=== PATIENT | female | born 1970 | race Caucasian/White ===

== ENCOUNTER → 2016-08-31 | Outpatient (CLI) | payer OTHER ==
[~2016-08-31] MED LIST: ALBU1AER9 INH; BUPRTAB PO; CHOL2000 PO; CYAN10005 PO; FLNIN/ NAE; IBUP-103 PO; NRN800 PO; PANT40TA2 PO; SNG10 PO; VNTHFA/IN INH; VORT1TAB PO
[2016-08-31 17:36] LABS: BASO % 0.4 %; BASO ABS # 0.03 K/uL (0-0.2); COMPLETE YES; EOS % 2.2 %; HEMATOCRIT 41.7 % (37-47); IG% 0.2 %; LYMPH % 29.2 %; LYMPH ABS # 2.43 K/uL (1.2-3.4); MEAN CELL VOLUME 90.5 fL (80-100); MEAN CORPUSCULAR HEMOGLOBIN 31.2 pg (25-34); MEAN CORPUSCULAR HGB CONC 34.5 g/dl (32-36); MEAN PLATELET VOLUME 11.3 fL (7.4-10.4); MONO % 5.9 %; NEUT % 62.1 %; PLATELET COUNT 234 K/uL (130-400); RED BLOOD COUNT 4.61 M/uL (4.2-5.4); WHITE BLOOD COUNT 8.32 K/uL (4.8-10.8)
[2016-08-31 18:30] LABS: LYME DISEASE AB IGM NEG (NEG)
[2016-08-31 18:35] LABS: LYME DISEASE AB IGG NEG (NEG)
== END | disposition home or self-care (01) ==
LOC: C.LABBFT 14:09
PROVIDERS: ATTEND Psychiatry & Neurology Psychiatry
DX: F32.9 Major depressive disorder, single episode, unspecified (principal); R26.89 Other abnormalities of gait and mobility; R51 Headache; R20.2 Paresthesia of skin

== ENCOUNTER → 2016-09-11 | Outpatient (CLI) | payer OTHER | END | disposition home or self-care (01) | LOC: C.RDSM 12:56 | PROVIDERS: ATTEND Family Medicine Sports Medicine | DX: M25.511 Pain in right shoulder (principal) ==

== ENCOUNTER → 2016-10-09 | Outpatient (CLI) | payer OTHER ==
--- NOTE | 2016-10-09 15:17 | DIAGNOSTIC IMAGING REPORT ---
MRI OF THE RIGHT SHOULDER CLINICAL HISTORY: Right shoulder pain of 6 months duration. COMPARISON STUDY: Radiographs of the right shoulder dated 09/11/2016. TECHNIQUE: MRI of the right shoulder was performed utilizing various T1 and T2 weighted sequences in the axial, sagittal, coronal planes. IV contrast was not administered for this examination. The examination is degraded by motion artifact. FINDINGS: Rotator cuff: There is tendinopathy of the supraspinatous tendon. A high-grade partial-thickness tear is seen on coronal images #8-10. Additional foci of undersurface tearing are seen at the leading edge. No full-thickness tear is seen and there is no musculotendinous retraction. The teres minor and subscapularis tendons are intact. There is no subacromial or subdeltoid bursal fluid. Productive degenerative change is seen at the acromioclavicular joint. Biceps tendon: The long head of the biceps tendon is normal in signal intensity and located within the bicipital groove. The anchor is maintained. Labrum: There is degenerative tearing/fraying of the superior labrum.. Shoulder joint: There is trace joint fluid. The articular cartilage over the glenoid is well maintained. Normal marrow signal intensity is preserved of the visualized osseous structures. Musculature and soft tissues: The musculature of the shoulder is normal in bulk and signal intensity. No atrophy is seen. IMPRESSION: 1. Motion degraded examination. 2. There is tendinopathy with a high-grade partial-thickness tear of the supraspinatous tendon located near the muscular tendinous junction. 3. Additional foci of mild undersurface tearing are seen at the leading edge of the supraspinous tendon. 3. The remainder of the rotator cuff appears intact. 4. There is degenerative tearing/fraying of the superior labrum. Electronically signed by: Herb Krishnan M.D. 10/09/2016 3:15 PM Dictated Date/Time: 10/09/2016 3:01 PM
== END | disposition home or self-care (01) ==
LOC: C.MRI 13:30
PROVIDERS: ATTEND Family Medicine Sports Medicine
DX: M25.511 Pain in right shoulder (principal); M75.40 Impingement syndrome of unspecified shoulder

== ENCOUNTER → 2016-11-24 | Outpatient (CLI) | payer OTHER ==
[~2016-11-24] MED LIST changes: -BUPRTAB PO; -CHOL2000 PO; -CYAN10005 PO; -IBUP-103 PO; -PANT40TA2 PO; +PRT/40 PO; -VNTHFA/IN INH; -VORT1TAB PO
[2016-11-24 16:47] LABS: BASO % 0.3 %; BASO ABS # 0.03 K/uL (0-0.2); COMPLETE YES; EOS % 2.5 %; HEMATOCRIT 40.4 % (37-47); IG% 0.3 %; LYMPH % 26.6 %; LYMPH ABS # 2.86 K/uL (1.2-3.4); MEAN CELL VOLUME 91.6 fL (80-100); MEAN CORPUSCULAR HEMOGLOBIN 30.6 pg (25-34); MEAN CORPUSCULAR HGB CONC 33.4 g/dl (32-36); MEAN PLATELET VOLUME 10.8 fL (7.4-10.4); NEUT % 65.3 %; PLATELET COUNT 205 K/uL (130-400); RED BLOOD COUNT 4.41 M/uL (4.2-5.4); WHITE BLOOD COUNT 10.77 K/uL (4.8-10.8)
[2016-11-24 17:13] LABS: ALT/SGPT 23 U/L (12-78); BLOOD UREA NITROGEN 6 mg/dl (7-18); BUN/CREATININE RATIO 9.1 (10-20); CALCIUM 8.9 mg/dl (8.5-10.1); CARBON DIOXIDE 26 mmol/L (21-32); CHLORIDE 104 mmol/L (98-107); CREATININE 0.66 mg/dl (0.60-1.20); GLUCOSE 81 mg/dl (70-99); POTASSIUM 3.7 mmol/L (3.5-5.1); SODIUM 138 mmol/L (136-145)
[2016-11-24 17:24] LABS: ALB/GLOB RATIO 0.8 (0.9-2); ALKALINE PHOSPHATASE 82 U/L (45-117); AST/SGOT 16 U/L (15-37)
[2016-11-24 18:08] LABS: ESTIMATED AVERAGE GLUCOSE 100 mg/dl; HA1C FLAG Normal (Normal)
== END | disposition home or self-care (01) ==
LOC: C.LAB1850 15:43
PROVIDERS: ATTEND Family Medicine
DX: R53.83 Other fatigue (principal); E55.9 Vitamin D deficiency, unspecified; R73.02 Impaired glucose tolerance (oral); E53.8 Deficiency of other specified B group vitamins; R61 Generalized hyperhidrosis

== ENCOUNTER → 2016-12-07 | Outpatient (CLI) | payer OTHER ==
--- NOTE | 2016-12-07 16:18 | DIAGNOSTIC IMAGING REPORT ---
RIGHT KNEE 3 VIEWS HISTORY: 46 years-old Female M06.4 Inflammatory [id number] NSAID long-term use. COMPARISON: None available TECHNIQUE: Frontal, lateral and sunrise views of the right knee FINDINGS: There is no acute fracture, dislocation or significant degenerative changes. There is a small joint effusion. 3 mm peripherally corticated bone fragment is seen medial to the medial femoral condyle. No intra-articular loose body is seen. IMPRESSION: 1. Small joint effusion without acute bony modality. 2. 3 mm corticated fragment medial to the medial femoral condyle may reflect remote avulsion fracture or accessory ossicle. The above report was generated using voice recognition software. It may contain grammatical, syntax or spelling errors. Electronically signed by: Juventino Lock M.D. 12/07/2016 4:17 PM Dictated Date/Time: 12/07/2016 4:15 PM
--- NOTE | 2016-12-07 16:20 | DIAGNOSTIC IMAGING REPORT ---
LEFT HAND MIN 3 VIEWS ROUTINE HISTORY: 46 years-old Female M06.4 Inflammatory qripyngzyzfwnQ28.1 NSAID long-term useBoth COMPARISON: None available TECHNIQUE: 3 views of the left hand FINDINGS: Mild first digit carpometacarpal and triscaphe degenerative changes are present. There is no acute fracture, dislocation or evidence of erosive arthropathy. Articular surfaces appear maintained throughout the wrist and hand. Soft tissues are within normal limits. IMPRESSION: 1. No acute fracture or dislocation identified. 2. No evidence of erosive arthropathy. The above report was generated using voice recognition software. It may contain grammatical, syntax or spelling errors. Electronically signed by: Juventino Lock M.D. 12/07/2016 4:19 PM Dictated Date/Time: 12/07/2016 4:17 PM
--- NOTE | 2016-12-07 16:24 | DIAGNOSTIC IMAGING REPORT ---
LEFT KNEE 3 VIEWS HISTORY: 46 years-old Female M06.4 Inflammatory dfbtzzjchxboaK64.1 NSAID long-term useBoth COMPARISON: None available TECHNIQUE: Frontal and lateral views of the left knee FINDINGS: No acute fracture or dislocation. Minimal tricompartmental degenerative changes are seen, most pronounced in the medial compartment. There is a suspected small joint effusion. No intra-articular loose body. No erosive changes are seen. No evidence of AVN. IMPRESSION: 1. 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 2. No acute osseous abnormality. The above report was generated using voice recognition software. It may contain grammatical, syntax or spelling errors. Electronically signed by: Juventino Lock M.D. 12/07/2016 4:23 PM Dictated Date/Time: 12/07/2016 4:22 PM
--- NOTE | 2016-12-07 16:26 | DIAGNOSTIC IMAGING REPORT ---
RIGHT ANKLE MIN 3 VIEWS ROUTINE HISTORY: 46 years-old Female M06.4 Inflammatory pynsvcpsvzvseZ51.1 NSAID long-term useBoth Right COMPARISON: None available TECHNIQUE: 3 views of the right ankle. FINDINGS: Ankle mortise is well maintained and anatomically positioned. The talar dome is smooth. No acute fracture, dislocation or significant degenerative changes. There is moderate spurring of the Achilles insertion site about the calcaneus. Soft tissues are within normal limits without radiopaque foreign body. IMPRESSION: 1. No acute fracture or dislocation. 2. Moderate spurring of the Achilles insertion site about the calcaneus. The above report was generated using voice recognition software. It may contain grammatical, syntax or spelling errors. Electronically signed by: Juventino Lock M.D. 12/07/2016 4:25 PM Dictated Date/Time: 12/07/2016 4:24 PM
[2016-12-07 16:34] LABS: BASO % 0.3 %; BASO ABS # 0.03 K/uL (0-0.2); COMPLETE YES; HEMATOCRIT 41.8 % (37-47); IG% 0.2 %; LYMPH % 29.1 %; MEAN CELL VOLUME 89.3 fL (80-100); MEAN CORPUSCULAR HEMOGLOBIN 30.6 pg (25-34); MEAN CORPUSCULAR HGB CONC 34.2 g/dl (32-36); MEAN PLATELET VOLUME 10.6 fL (7.4-10.4); MONO % 4.6 %; NEUT % 60.8 %; PLATELET COUNT 252 K/uL (130-400); RED BLOOD COUNT 4.68 M/uL (4.2-5.4); WHITE BLOOD COUNT 8.93 K/uL (4.8-10.8)
--- NOTE | 2016-12-07 16:58 | DIAGNOSTIC IMAGING REPORT ---
RIGHT HAND 3 VIEWS CLINICAL HISTORY: Inflammatory polyarthritis. FINDINGS: 3 views of the right hand are obtained. No prior studies are available for comparison at the time of dictation. The skeletal structures are well mineralized. No fracture is seen. The joint spaces of the hand are well-maintained. No erosive change is seen. The overlying soft tissues are within normal limits. A bracelet is noted. IMPRESSION: Unremarkable radiographic assessment of the right hand. Electronically signed by: Herb Krishnan M.D. 12/07/2016 4:57 PM Dictated Date/Time: 12/07/2016 4:56 PM
[2016-12-07 17:06] LABS: RHEUMATOID FACTOR < 10.0 U/mL (0-15); TOTAL IRON BINDING CAPACITY 279 mcg/dl (250-450)
[2016-12-12 05:18] LABS: ANTI-CENTROMERE AB <1.0 NEG AI (<1.0 NEG); ANTI-SS-A <1.0 NEG AI (<1.0 NEG); ANTI-SS-B <1.0 NEG AI (<1.0 NEG); DNA ds CRITHIDIA NEGATIVE (NEGATIVE); PARVOVIRUS IgG INDEX 6.5 (<0.9); PARVOVIRUS IgM INDEX 0.2 (<0.9); Sm Antibody <1.0 NEG AI (<1.0 NEG)
== END | disposition home or self-care (01) ==
LOC: C.RAD1850 15:20
PROVIDERS: ATTEND Internal Medicine Rheumatology
DX: Z00.00 Encounter for general adult medical examination without abnormal findings (principal); M06.4 Inflammatory polyarthropathy; Z79.1 Long term (current) use of non-steroidal anti-inflammatories (NSAID); M77.31 Calcaneal spur, right foot

== ENCOUNTER → 2017-04-13 | Outpatient (CLI) | payer OTHER ==
[~2017-04-13] MED LIST changes: +BUPRTAB PO; +CHOL2000 PO; +CYAN10005 PO; +IBUP-103 PO; +PANT40TA2 PO; -PRT/40 PO; +VNTHFA/IN INH; +VORT1TAB PO
--- NOTE | 2017-04-14 13:45 | MAMMOGRAPHY REPORT ---
BILATERAL DIGITAL SCREENING MAMMOGRAM TOMOSYNTHESIS WITH CAD: 04/13/2017 CLINICAL HISTORY: Routine screening. Patient has no complaints. TECHNIQUE: Breast tomosynthesis in addition to standard 2D mammography was performed. Current study was also evaluated with a Computer Aided Detection (CAD) system. COMPARISON: Comparison is made to exams dated: 03/30/2016 mammogram, 03/25/2015 mammogram, 03/22/2014 mammogram, 08/11/2013 mammogram, and 08/07/2013 mammogram - [facility]. BREAST COMPOSITION: There are scattered areas of fibroglandular density in both breasts. Mild invol utional changes comparing to prior mammograms. FINDINGS: There is a benign rim calcification in the right breast. No suspicious mass, architectural distortion or cluster of microcalcifications is seen. IMPRESSION: ACR BI-RADS CATEGORY 1: NEGATIVE There is no mammographic evidence of malignancy. A 1 year screening mammogram is recommended. The pa tient will receive written notification of the results. Approximately 10% of breast cancers are not detected with mammography. A negative mammographic report should not delay biopsy if a clinically suggestive mass is present. Ashlie Hill M.D. ay/:04/13/2017 17:48:24 Geology Instructor: Tracey LORA(Jaelyn)(Goran)([place]), [facility] letter sent: Normal 1/2 BI-RADS Code: ACR BI-RADS Category 1: Negative
== END | disposition home or self-care (01) ==
LOC: C.MAMM 13:45
PROVIDERS: ATTEND Obstetrics & Gynecology
DX: Z12.31 Encounter for screening mammogram for malignant neoplasm of breast (principal)

== ENCOUNTER → 2017-04-22 | Outpatient (CLI) | payer OTHER ==
[~2017-04-22] MED LIST changes: -ALBU1AER9 INH
== END | disposition home or self-care (01) ==
LOC: C.RDSM 10:41
PROVIDERS: ATTEND Family Medicine Sports Medicine
DX: M25.512 Pain in left shoulder (principal)

== ENCOUNTER → 2017-04-30 | Outpatient (CLI) | payer OTHER ==
[~2017-04-30] MED LIST changes: +GADAVIST IV PRN
--- NOTE | 2017-04-30 13:57 | DIAGNOSTIC IMAGING REPORT ---
FLUOROSCOPICALLY GUIDED LEFT SHOULDER ARTHROGRAM PRIOR TO MRI CLINICAL HISTORY: Left shoulder pain. Fluoroscopy time: 13 seconds. PROCEDURE: 1 fluoroscopic image was obtained. The procedure, risks and benefits were discussed with the patient and informed written consent was obtained. The procedure was performed by Dr. Dietz following a timeout. Skin overlying the left glenohumeral joint was prepped and draped in sterile fashion and local anesthesia was achieved with 1% lidocaine. Under intermittent fluoroscopic guidance, a 2 1/2 inch, 22-gauge needle was directed into the left glenohumeral joint. Positioning within the joint space was confirmed with injection of a small amount of contrast. At this time, 12 cc of a mixture of 0.05 cc of gadolinium, 10 cc of normal saline and 10 cc of Optiray 300 was injected into the joint. The needle was removed. The patient tolerated the procedure well and no immediate complications were evident. The patient was transported to MRI. IMPRESSION: Fluoroscopically guided left shoulder arthrogram prior to MRI. Electronically signed by: Kd Dietz M.D. 04/30/2017 1:56 PM Dictated Date/Time: 04/30/2017 1:51 PM
--- NOTE | 2017-04-30 18:34 | DIAGNOSTIC IMAGING REPORT ---
L UPPER EXTREMITY JOINT W/ CLINICAL HISTORY: 46 years-old Female with L SHOULDER PAIN. Acute on chronic left shoulder pain. History of prior labral and biceps surgery. COMPARISON: Left shoulder radiographs 04/22/2017, left shoulder MRI 05/23/2014. TECHNIQUE: Multiplanar, multi sequence MRI of the left shoulder was performed following the intra-articular administration of solution containing gadolinium. FINDINGS: ROTATOR CUFF: High-grade partial-thickness articular sided tear of the mid insertional fibers of the supraspinatus tendon measures 4 mm in AP dimension and 7 mm in transverse dimension with interstitial extension of the tear seen on image 9 series 5. No tendon retraction or definite full-thickness tear identified. Mild tendinosis of the interspinous tendon without definite tear. Subscapularis and teres minor tendons appear intact. Rotator cuff muscle morphology and signal are within normal limits. BICEPS TENDON: Postoperative changes with screw tract noted near the intertubercular groove from prior long head biceps tendon/subscapularis tendon repair. Intermediate intrasubstance T2 signal within the long head biceps tendon as seen on image 14 series 4 is likely postsurgical. Long head biceps tendon is seated within the intertubercular groove. LABRUM: There is mild fraying of the anteroinferior quadrant labrum as noted on image 12 series 4 without definite acute labral tear identified. There is no evidence for a paralabral cyst or displaced labral fragment. GLENOHUMERAL JOINT: The articular cartilage overlying the glenoid fossa is normal. There is no loose body or debris present within the glenohumeral joint. ACROMIOCLAVICULAR JOINT: Mild degenerative changes of the acromioclavicular joint with marginal spurring and capsular hypertrophy. The acromium has a gently curved undersurface.. No evidence of os acromiale. No definite subacromial/subdeltoid bursitis. OUTLET SPACES: The suprascapular notch and quadrilateral space are without obstructing or space occupying lesions. BONE MARROW: No focal abnormality, fracture or marrow occupying lesion. SOFT TISSUES: The periarticular soft tissues are unremarkable. Micrometallic artifact noted within the anterolateral soft tissues about the shoulder. Likely physiologic nonenlarged axillary lymph nodes are present. IMPRESSION: 1. High-grade partial-thickness articular sided tear of the mid insertional fibers supraspinatus tendon, 4 x 7 mm with interstitial extension. No tendon retraction or full-thickness tear identified. 2. Mild tendinosis of the infraspinatus tendon without definite tear. 3. Prior long head biceps tendon repair. Mild intermediate intrasubstance T2 signal as above is likely postsurgical with tendon re-tear considered less likely. Correlate with clinical exam and patient symptoms. 4. Mild fraying of the anteroinferior labrum without definite acute labral tear identified. 5. Mild degenerative changes of the acromioclavicular joint. The above report was generated using voice recognition software. It may contain grammatical, syntax or spelling errors. Electronically signed by: Juventino Lock M.D. 04/30/2017 6:32 PM Dictated Date/Time: 04/30/2017 2:22 PM
== END | disposition home or self-care (01) ==
LOC: C.MRIBC 12:43
PROVIDERS: ATTEND Family Medicine Sports Medicine
DX: M25.512 Pain in left shoulder (principal)

== ENCOUNTER 2017-05-03 10:05 | Observation (INO) | payer OTHER ==
[2017-04-15 10:35] VITALS: BMI 36.0
--- NOTE | 2017-04-28 11:30 | PAT Medication Instructions ---
Service Date Apr 28, 2017. Current Home Medication List Albuterol Hfa (Ventolin Hfa), 1-2 PUFFS INH Q6H PRN for ALLERGIC REACTION Bupropion Hcl (Wellbutrin Xl), 150 MG PO QAM Cholecalciferol (Vitamin D3), 2,000 UNITS PO QAM Cyanocobalamin (Vitamin B-12), 1,000 MCG PO QAM Fluticasone Propionate (Fluticasone Propionate), 2 SPRAYS MYRIAM DAILY PRN for Allergy Symptoms Gabapentin (Gabapentin), 800 MG PO TID Ibuprofen Tab (Advil), 400 MG PO Q5H PRN for Pain Montelukast Sod (Montelukast Sodium), 10 MG PO QAM Pantoprazole (Pantoprazole Sodium), 40 MG PO QAM Vortioxetine HBr (Trintellix), 5 MG PO HS Medication Instructions For Your Scheduled Surgery - Check with surgeon for instructions: Ibuprofen Tab (Advil), 400 MG PO Q5H PRN for Pain - Hold the following medications the morning of surgery: Cholecalciferol (Vitamin D3), 2,000 UNITS PO QAM Cyanocobalamin (Vitamin B-12), 1,000 MCG PO QAM Montelukast Sod (Montelukast Sodium), 10 MG PO QAM - Take the following medications the morning of surgery with a sip of water: Pantoprazole (Pantoprazole Sodium), 40 MG PO QAM Fluticasone Propionate (Fluticasone Propionate), 2 SPRAYS MYRIAM DAILY PRN for Allergy Symptoms (if needed) Gabapentin (Gabapentin), 800 MG PO TID Albuterol Hfa (Ventolin Hfa), 1-2 PUFFS INH Q6H PRN for ALLERGIC REACTION (if needed) Bupropion Hcl (Wellbutrin Xl), 150 MG PO QAM - Take the following medications as scheduled the night before surgery: Vortioxetine HBr (Trintellix), 5 MG PO HS Fluticasone Propionate (Fluticasone Propionate), 2 SPRAYS MYRIAM DAILY PRN for Allergy Symptoms (if needed) Gabapentin (Gabapentin), 800 MG PO TID Albuterol Hfa (Ventolin Hfa), 1-2 PUFFS INH Q6H PRN for ALLERGIC REACTION (if needed) Bupropion Hcl (Wellbutrin Xl), 150 MG PO QAM If you have any questions please call us at [phone] or [phone] or [phone]
[2017-04-28 13:56] LABS: BASO % 0.4 %; BASO ABS # 0.03 K/uL (0-0.2); COMPLETE YES; EOS % 2.5 %; HEMATOCRIT 41.7 % (37-47); IG% 0.4 %; LYMPH % 29.1 %; LYMPH ABS # 2.42 K/uL (1.2-3.4); MEAN CELL VOLUME 93.1 fL (80-100); MEAN CORPUSCULAR HEMOGLOBIN 31.7 pg (25-34); MEAN CORPUSCULAR HGB CONC 34.1 g/dl (32-36); MEAN PLATELET VOLUME 11.1 fL (7.4-10.4); NEUT % 61.6 %; PLATELET COUNT 216 K/uL (130-400); RED BLOOD COUNT 4.48 M/uL (4.2-5.4); WHITE BLOOD COUNT 8.32 K/uL (4.8-10.8)
[~2017-05-03] VITALS: Ht 165.1 cm; Wt 98.6 kg
[~2017-05-03 10:05] MED LIST changes: +CEFAZOLIN 2000MG IV PUSH 10 ML IV SCH; -GADAVIST IV PRN; +LACTATED RINGER'S 1000ML 1,000 ML IV SCH
--- NOTE | 2017-05-03 10:20 | History & Physical Bridge Note ---
H&P Re-Evaluation Bridge Note: I have examined the patient, reviewed the History & Physical and in the interval since the performance of the History & Physical I have noted the following changes of clinical significance: no changes in her medical history. Cystoscopy was added to the consent form.
[2017-05-03 10:30] VITALS: BP 138/74; PULSE 63; TEMP 36.8; O2SAT 97; Ht 165.1 cm; Wt 98.6 kg
[2017-05-03] MEDS ORDERED: FENTANYL CITRATE INJ 50 MCG/1 ML 2 ML VIAL ONE ×2 (11:26)
[2017-05-03] MEDS ORDERED: MIDAZOLAM HCL 1 MG/ML 2ML VIAL ONE (11:26)
[2017-05-03] MEDS ORDERED: METHYLENE BLUE 0.5% 10 ML VIAL ONE (12:17)
[2017-05-03] MEDS ORDERED: BUPIVACAINE 0.5 % 5 MG/1 ML MPF 30ML VIAL ONE (12:17)
[2017-05-03] MEDS ORDERED: DEXAMETHASONE SOD INJ 4 MG/ML VIAL ONE (13:31)
[2017-05-03] MEDS ORDERED: CISATRACURIUM BESYLATE IV SOLN 2 MG/ML 10 ML VIAL ONE (13:31)
[2017-05-03] MEDS ORDERED: LARYING-O-JET KIT (LTA) ONE ×2 (13:31)
[2017-05-03] MEDS ORDERED: NEOSTIGMINE METHYLSULFATE 5 MG/5 ML SYR ONE (13:31)
[2017-05-03] MEDS ORDERED: PROPOFOL IV EMULSION 10 MG/ML 20 ML VIAL IV ONE (13:31)
[2017-05-03] MEDS ORDERED: GLYCOPYRROLATE INJ 0.2 MG/ML VIAL ONE (13:31)
[2017-05-03] MEDS ORDERED: LIDOCAINE HCL 2% 2 ML VIAL (20MG/ML) ONE (13:31)
[2017-05-03] MEDS ORDERED: ONDANSETRON INJ 2 MG/ML 2 ML VIAL ONE ×2 (13:31→14:46)
[2017-05-03] MEDS ORDERED: KETOROLAC TROMETHAMINE 30 MG/ML VIAL ONE (13:31)
[2017-05-03] MEDS ORDERED: LACTATED RINGER'S 1000ML 1,000 ML IV SCH (14:32)
--- NOTE | 2017-05-03 14:35 | [facility] Post Operative Brief Note ---
Immediate Operative Summary Operative Date May 03, 2017. Pre-Operative Diagnosis Cervical mass Post-Operative Diagnosis Cervical mass Procedure(s) Performed Robotic assisted laparoscopic trachelectomy with cystoscopy Surgeon Dr. Carolina Bejarano MD Medical Leader Surgeon(s) Dr. Analilia Rudd MD Estimated Blood Loss 25ml Findings small cervical stump noted. nl ovs noted bilaterally, no significant adhesions Fluids (cc crystalloids) 1500cc Specimens A. Cervical stump Drains méndez Anesthesia gett Complication(s) None Disposition Recovery Room / PACU
--- NOTE | 2017-05-03 14:37 | Discharge Instructions ---
Discharge Instructions Date of Service May 03, 2017. Admission Reason for Admission: Cervical Mass Discharge Discharge Diagnosis / Problem: s/p removal of cervical stump and cystoscopy Discharge Goals Goal(s): Routine recovery after surgery Activity Recommendations Activity Limitations: per Instructions/Follow-up section . Instructions / Follow-Up Instructions / Follow-Up POST OPERATIVE: BOWEL FUNCTION/MEDICATIONS: 1. Constipation pain and discomfort are the most common complaints 5-7 days after surgery. Points 2-6 address the things that can help. 2. Chewing gum can help stimulate the gut and help improve digestion and motility. 3. Milk of Magnesia 1-2 times per day until return of bowel function. 4. Colace is a stool softener that helps. Taking this 2-3 times per day until bowel function returns to normal is highly recommended. 5. Dulcolax is a laxative that may be used if several days have passed without a bowel movement. Alternatively Miralax may be used daily instead. 6. Drink plenty of fluids as this will also reduce constipation. 7. Narcotic pain medications will be prescribed by your physician. They are safe to use and we encourage you to use them. If you are not allergic, ibuprofen will also be prescribed. Many patients will be able to transition off of the narcotic medications to ibuprofen by postoperative day 3. ACTIVITY RECOMMENDATIONS: 1. Get plenty of rest and listen to your body. If you are tired, take a nap. 2. You may shower, but do not take a tub bath until you see your doctor at the 2 week post operative visit. 3. Absolutely NO intercourse and nothing in the vagina until you are examined by your doctor at the 6 week visit. At that visit it will be determined when such activities can be resumed. This can range from 6-12 weeks after your surgery depending on healing time. 4. The main physical activity in the first week should be walking. By the second week you can slowly increase activity. There are no limits on walking up and down stairs. 5. Do not lift more than 5-10 lbs for 4 weeks. Remember the "one-handed rule", i.e. if you can lift something with only one hand it's likely okay. 6. Minimize driver operator like vacuuming and exercising for 4 weeks. "Overdoing it" can lead to incisions not healing, pain and vaginal bleeding , so again, listen to your body. 7. Driving can be resumed when you feel able. Do not drive within 24 hours of taking a narcotic medication. EXPECTATIONS: 1. Vaginal spotting, bleeding and discharge are common after surgery. There may even be an odor to the discharge which is often related to sutures used in the vagina. If you experience heavy vaginal bleeding, call the office number day or night [phone]. 2. Bladder discomfort is common after surgery from the catheter. This usually resolves in 1-2 weeks. 3. By the end of the 3rd or 4th week you should be feeling much better. It may take up to 6 weeks for your energy levels to return to normal. 4. Narcotic medications have side effects such as: dizziness, headache, nausea and/or vomiting. If you suspect your pain medication is causing problems, call our office and we may be able to prescribe an alternate medication. 5. The skin incisions are often covered with a liquid bandage. This will gradually peel off over time. CALL THE OFFICE IF YOU HAVE ANY OF THE FOLLOWIN. Temperature of 101 degrees or higher. 2. Severe abdominal or pelvic pain not relieved by pain medication. 3. Persistent nausea or vomiting. 4. Increased pain with urination or difficulty urinating. 5. Bright red bleeding that soaks more than 1 pad per hour. CONTACT PHONE NUMBERS: Main Office: [phone] Surgical Nurse: [phone] extension [phone] FOLLOW-UP: Post-Operative Appointments: * Individual instructions will have been given about the timing of your first examination, but this is usually at the end of the second week home. * You will need to call the office at soon after discharge to make the appointment for your post-op check-up if it has not already been scheduled. * Additional information regarding activity, sexual intercourse and when to return to work will be given at this appointment. WE WISH YOU A SPEEDY RECOVERY! Current Hospital Diet Patient's current hospital diet: Discharge Diet Recommended Diet: Regular Diet Procedures Procedures Performed: Robotic assisted laparoscopic trachelectomy with cystoscopy Pending Studies Studies pending at discharge: no Medical Emergencies . Who to Call and When: Medical Emergencies: If at any time you feel your situation is an emergency, please call 911 immediately. . Non-Emergent Contact Non-Emergency issues call your: Supply Teacher . . "Provider Documentation" section prepared by Carolina Bejarano. . VTE Core Measure Inpt VTE Proph given/why not?: Treatment not indicated [place] Drug Monitoring Program Search Results: patient reviewed within database, no issues identified
[2017-05-03] MEDS ORDERED: HYDROmorphone INJ 1 MG/ML SYR ONE ×2 (14:43→15:09)
[2017-05-03] MEDS ORDERED: IBUPROFEN 600 MG TAB PO PRN (14:45)
[2017-05-03] MEDS ORDERED: KETOROLAC TROMETHAMINE 30 MG/ML VIAL IV. PRN (14:45)
[2017-05-03] MEDS ORDERED: OXYCODONE/ACETAMINOPHEN 5-325 TAB PO PRN ×2 (14:45)
[2017-05-03] MEDS ORDERED: SIMETHICONE 80 MG CHEW PO PRN (14:45)
[2017-05-03] MEDS ORDERED: ACETAMINOPHEN 325 MG TAB PO PRN (14:45)
[2017-05-03] MEDS ORDERED: MEPERIDINE HCL 50 MG/ML CARP IV PRN ×2 (14:45)
[2017-05-03] MEDS ORDERED: IV FLUIDS COMPLETED PRN (14:45)
--- NOTE | 2017-05-03 14:55 | OPERATIVE REPORT ---
DATE OF OPERATION: 05/03/2017 PREOPERATIVE DIAGNOSES: 1. Cervical mass. 2. Status post supracervical hysterectomy. POSTOPERATIVE DIAGNOSES: Same. PROCEDURE: 1. Laparoscopic trachelectomy via da Denice assist. 2. Cystoscopy. SURGEON: Dr. Bejarano. RELIEF WORKER: Dr. Rudd. ANESTHESIA: General per endotracheal tube. ESTIMATED BLOOD LOSS: 25 mL. FLUIDS: 1500 mL. URINE OUTPUT: 600 mL of clear yellow urine drained from the bladder at the end of the procedure. INDICATIONS: The patient is a 46-year-old white female who had a supracervical hysterectomy many years ago for bleeding issues and now presents with a cervical mass and bleeding. FINDINGS: A small cervical stump, ovaries noted to be normal bilaterally, no significant adhesive disease. COMPLICATIONS: None. DRAINS: Castaneda. DISPOSITION: To recovery room in stable condition. DESCRIPTION OF PROCEDURE: The patient was taken to the operating room where she was identified verbally and by bracelet. She was placed in the dorsal supine position where general anesthesia was induced without difficulty. She was then placed in dorsal lithotomy position in [facility]. Her arms were carefully tucked and draped at her side. Her chest was padded and protected. The head correction officer was placed. The patient was prepped and draped in normal sterile fashion. A time-out was held identifying correct patient, procedure and positioning. Attention was turned to laparoscopy first where an infraumbilical incision was made with a knife. Veress needle was placed through this x3 with opening pressures greater than 10 mmHg, so a cutdown procedure was then performed. The fascia was identified and cut with scissors, the peritoneum was identified and cut with scissors and a Lea trocar was placed directly by visualization. The patient was then placed into Trendelenburg and two 8 mm accessory da Denice trocars were placed in the left and right lower quadrant under direct visualization. Dr. Rudd then proceeded to the vagina. The cervix was found to be free of adhesions and so the decision was made to perforate the cervix so that we could attach the VCare uterine manipulator cup. This was done under direct visualization being sure to be clear of the bladder. It was perforated with uterine sounds and then the VCare balloon was placed through the cervix into the abdomen. The balloon was blown up on the intra-abdominal side of the cervix. The cup was sutured to the cervix with one 1 suture of 0 Vicryl. Attention was then turned to the da Denice console. The bladder was taken down sharply using scissors, there were some adhesions of the epiploica to the posterior cuff that was taken down sharply with scissors and then the colpotomy incision was made in 365 degrees until the specimen was removed through vagina. The vagina was then reapproximated with 2-0 V-Loc suture until hemostasis was noted to be excellent. Cystoscopy was performed with a 70 degree scope. There were no lesions noted in the bladder, no holes, no stitches and there was effluxing methylene blue urine coming from both ureters. The procedure was terminated, her old catheter had been removed and a new catheter was replaced. Attention was then turned to the abdomen where the trocars were removed, the gas was released and 0 Vicryl sutures were placed in the deep fascia of the supraumbilical incision and the incisions were closed with 4-0 Vicryl in a subcuticular fashion. The incisions were then infiltrated with 0.5% Marcaine. All sponge, lap and needle counts were correct x2. The patient tolerated the procedure well and was taken to the recovery room in stable condition. I attest to the content of the Intraoperative Record and any orders documented therein. Any exceptions are noted below. ELMO
[2017-05-03] MEDS ORDERED: LABETALOL HCL IV 5 MG/ML 20ML IV PRN (15:00)
[2017-05-03] MEDS ORDERED: EpHEDrine SULFATE INJ 50 MG/ML AMP IV PRN (15:00)
[2017-05-03] MEDS ORDERED: HYDROmorphone INJ 1 MG/ML SYR IV PRN (15:00)
[2017-05-03] MEDS ORDERED: ATROPINE SULFATE 0.1 MG/ML 5ML SYR IV PRN (15:00)
[2017-05-03] MEDS ORDERED: PROMETHAZINE HCL INJ 12.5 MG in SODIUM CHLORIDE 0.9% 50ML 50 ML IV PRN (15:00)
[2017-05-03] MEDS ORDERED: NALOXONE HCL 0.4 MG/1 ML VIAL/CARP IV PRN (15:00)
[2017-05-03] MEDS ORDERED: ONDANSETRON INJ 2 MG/ML 2 ML VIAL IV PRN (15:00)
[2017-05-03] MEDS ORDERED: FLUMAZENIL 0.1 MG/1 ML 10 ML VIAL IV PRN (15:00)
--- NOTE | 2017-05-03 15:33 | Anesthesiology Progress Note ---
Anesthesia Post Op Note Date & Time May 03, 2017 at 15:33 Vital Signs Pain Intensity: 6 Vital Signs Past 12 Hours Date Time Temp Pulse Resp B/P (MAP) Pulse Ox O2 Delivery O2 Flow Rate FiO2 05/03/17 15:20 62 22 145/82 100 Nasal Cannula 2 05/03/17 15:10 57 18 137/66 100 Nasal Cannula 2 05/03/17 15:00 58 15 144/81 100 Nasal Cannula 2 05/03/17 14:50 59 14 114/77 100 Oxymask 10 05/03/17 14:40 50 12 147/70 100 Oxymask 10 05/03/17 14:34 36.3 60 16 132/52 100 Oxymask 10 05/03/17 10:30 36.8 63 18 138/74 (95) 97 Room Air Notes Mental Status: alert / awake / arousable, participated in evaluation Pt Amnestic to Procedure: Yes Nausea / Vomiting: adequately controlled Pain: adequately controlled Airway Patency, RR, SpO2: stable & adequate BP & HR: stable & adequate Hydration State: stable & adequate Anesthetic Complications: no major complications apparent
[2017-05-03 16:00] VITALS: BP 107/56; PULSE 65; TEMP 36.6; O2SAT 99
[2017-05-03 16:30] VITALS: BP 117/59; PULSE 72; TEMP 36.6; O2SAT 100
[2017-05-03 17:00] VITALS: BP 123/59; PULSE 68; TEMP 36.6; O2SAT 98
[2017-05-03 18:00] VITALS: BP 109/54; PULSE 83; TEMP 36.5; O2SAT 99
[2017-05-03 20:22] VITALS: BP 109/54; PULSE 83; TEMP 36.5; O2SAT 99
--- NOTE | 2017-05-07 11:27 | DISCHARGE SUMMARY ---
PREOPERATIVE DIAGNOSES: Cervical mass, vaginal bleeding, status post supracervical hysterectomy. POSTOPERATIVE DIAGNOSIS: Same. PROCEDURE: Laparoscopic assisted trachelectomy and cystoscopy. HISTORY OF PRESENT ILLNESS: The patient is a 46-year-old white female 2, para 2, x2, who presents for trachelectomy. She had a supracervical hysterectomy years ago. She had no bleeding until recently. Ultrasound shows cervical mass with blood flow, questionable adenomyoma. The patient has had some bleeding but no significant pain. We discussed expectant management versus excision of the cervix and she would like surgical management. For the rest of the patient's detailed history and physical, please see her dictated history and physical. ASSESSMENT: A 46-year-old G2, P2 status post supracervical hysterectomy who now has a cervical mass with blood flow and vaginal bleeding. HOSPITAL COURSE: The patient was admitted and underwent a laparoscopic trachelectomy with da Denice surgical physician assistant cystoscopy. Estimated blood loss was 25 mL. The patient tolerated the procedure quite well. Postoperatively she voided after the removal of her Castaneda catheter, ambulated, tolerated p.o. pain medications and a regular diet. She was discharged home on the night of surgery and had been previously given a prescription for oral pain meds.
== END 2017-05-03 20:52 | disposition home or self-care (01) ==
LOC: C.ACU 10:05 → C.MS4N 14:34 → ENRESERV 15:45
PROVIDERS: ADMIT Obstetrics & Gynecology; ATTEND Obstetrics & Gynecology
DX: N88.8 Other specified noninflammatory disorders of cervix uteri (principal); M15.9 Polyosteoarthritis, unspecified; J43.9 Emphysema, unspecified; F32.9 Major depressive disorder, single episode, unspecified; K21.9 Gastro-esophageal reflux disease without esophagitis; E66.01 Morbid (severe) obesity due to excess calories; Z68.42 Body mass index [BMI] 45.0-49.9, adult; Z79.1 Long term (current) use of non-steroidal anti-inflammatories (NSAID); Z87.440 Personal history of urinary (tract) infections; Z90.49 Acquired absence of other specified parts of digestive tract; Z98.51 Tubal ligation status; Z83.6 Family history of other diseases of the respiratory system; Z82.49 Family history of ischemic heart disease and other diseases of the circulatory system; Z83.3 Family history of diabetes mellitus; Z82.61 Family history of arthritis; Z80.3 Family history of malignant neoplasm of breast; Z87.891 Personal history of nicotine dependence
CPT/HCPCS: 57530; S2900

== ENCOUNTER → 2017-05-26 | Outpatient (CLI) | payer OTHER ==
[~2017-05-26] MED LIST changes: -CEFAZOLIN 2000MG IV PUSH 10 ML IV SCH; -LACTATED RINGER'S 1000ML 1,000 ML IV SCH
[2017-05-26 13:47] LABS: ALBUMIN 3.1 gm/dl (3.4-5.0); ALT/SGPT 18 U/L (12-78); BLOOD UREA NITROGEN 12 mg/dl (7-18); CALCIUM 8.5 mg/dl (8.5-10.1); CARBON DIOXIDE 26 mmol/L (21-32); CREATININE 0.72 mg/dl (0.60-1.20); GLUCOSE 91 mg/dl (70-99); SODIUM 138 mmol/L (136-145)
[2017-05-26 13:58] LABS: ALKALINE PHOSPHATASE 90 U/L (45-117); AST/SGOT 9 U/L (15-37); TOTAL PROTEIN 7.5 gm/dl (6.4-8.2)
[2017-05-27 06:03] LABS: HEMOGLOBIN A1C 4.8 % (4.5-5.6)
== END | disposition home or self-care (01) ==
LOC: C.LAB1850 11:37
PROVIDERS: ATTEND Family Medicine
DX: E03.9 Hypothyroidism, unspecified (principal); E55.9 Vitamin D deficiency, unspecified; R73.02 Impaired glucose tolerance (oral)

== ENCOUNTER 2017-09-18 20:19 | Emergency (ER) | payer OTHER ==
[~2017-09-18] VITALS: Ht 165.1 cm; Wt 109.5 kg
[2017-09-18 20:23] VITALS: TEMP 36.6; Ht 165.1 cm; Wt 109.5 kg
[2017-09-18] MEDS ORDERED: HYDROmorphone INJ 1 MG/ML SYR IM STA (20:50)
[2017-09-18] MEDS ORDERED: CYCLOBENZAPRINE HCL 10 MG TAB PO STA (20:50)
[2017-09-18] MEDS ORDERED: BUPRTAB51 PO (20:54)
[2017-09-18] MEDS ORDERED: ONDANSETRON 4MG OD TAB ONE (21:35)
--- NOTE | 2017-09-18 21:40 | DIAGNOSTIC IMAGING REPORT ---
C-SPINE ROUTINE 4 OR 5 VIEWS CLINICAL HISTORY: 47 years-old Female presenting with cervical spasm, Right. TECHNIQUE: Lateral, swimmer's, open-mouth odontoid, frontal, bilateral oblique views of the cervical spine were obtained. COMPARISON: MR of the cervical spine from 12/09/2015. FINDINGS: Normal cervical lordosis. Vertebral bodies maintain normal height and alignment. Intervertebral disc heights preserved. No radiographic evidence of fracture or subluxation. No advanced degenerative change. Normal predental interval. No prevertebral soft tissue swelling. The C7 vertebral body is nearly fully visualized. Lateral masses of C1 articulate normally with C2. No scoliosis or significant uncovertebral hypertrophy. No osseous neural foraminal narrowing. IMPRESSION: Normal radiographic examination of the cervical spine. Electronically signed by: Cortez Li M.D. 09/18/2017 9:38 PM Dictated Date/Time: 09/18/2017 9:37 PM
--- NOTE | 2017-09-18 21:52 | EMERGENCY ROOM VISIT NOTE ---
History Report prepared by Noy: Sherrell Richey Under the Supervision of: Dr. Alva Solares M.D. First contact with patient: 20:30 Chief Complaint: NECK PAIN Stated Complaint: NECK PAIN History of Present Illness The patient is a 47 year old female who presents to the Emergency Room with complaints of worsening neck pain starting 3 weeks ago. She reports that it started out just being stiff, but then it was sore to look around. She notes that for a few days it was better, but then she worked in the [employer] last weekend and it became worse. She states that it is on the right side. The patient complains of right ear pain and a sore throat when she swallows. She notes that this started this morning. The patient denies shortness of breath, chest pain, fevers and seeing her PCP for it. Source of History: patient Onset: 3 weeks ago Position: neck Quality: other (stiffness, soreness) Timing: worsening Associated Symptoms: + sorethroat, No fevers, No chest pain, No SOB Note: The patient complains of right ear pain. Review of Systems See HPI for pertinent positives & negatives. A total of 10 systems reviewed and were otherwise negative. Past Medical & Surgical Medical Problems: (1) Cervical mass (2) section (3) PERINEAL ABSCESS (4) Rectovaginal fistula Family History Cancer Gallbladder disease Hypertension Seizures Social History Smoking Status: Never Smoker Alcohol Use: none Drug Use: none Marital Status: Housing Status: lives with significant other Occupation Status: employed Current/Historical Medications Scheduled Bupropion (Wellbutrin-Xl), 300 MG PO QAM Cholecalciferol (Vitamin D3), 2,000 UNITS PO QAM Cyanocobalamin (Vitamin B-12), 1,000 MCG PO QAM Gabapentin (Gabapentin), 800 MG PO TID Montelukast Sod (Montelukast Sodium), 10 MG PO QAM Pantoprazole (Pantoprazole Sodium), 40 MG PO QAM Prednisone (Prednisone), 40 MG PO DAILY Vortioxetine HBr (Trintellix), 5 MG PO HS Scheduled PRN Albuterol Hfa (Ventolin Hfa), 1-2 PUFFS INH Q6H PRN for ALLERGIC REACTION Cyclobenzaprine Hcl (Flexeril), 5 MG PO TID PRN for Muscle Spasms Fluticasone Propionate (Fluticasone Propionate), 2 SPRAYS MYRIAM DAILY PRN for Allergy Symptoms Ibuprofen Tab (Advil), 400 MG PO Q5H PRN for Pain Allergies Coded Allergies: BEE STING (Verified Allergy, Severe, THROAT CLOSES, 05/03/17) Adhesives (Verified Allergy, Unknown, SKIN COMES OFF, 05/03/17) Latex1 -Allergic Contact Dermititis (Verified Allergy, Unknown, RASH BLISTERS, HIVES, 05/03/17) NO KNOWN DRUG ALLERGIES (Verified Allergy, Unknown, ., 05/03/17) Physical Exam Vital Signs Date Time Temp Pulse Resp B/P (MAP) Pulse Ox O2 Delivery O2 Flow Rate FiO2 09/18/17 22:18 86 18 129/85 97 Room Air 09/18/17 20:23 36.6 82 18 150/77 97 Room Air Physical Exam Vital signs reviewed. General: Well-appearing, in no significant distress. HEENT: No scleral icterus, PERRLA, neck supple. Tender to palpation along the right cervical paraspinal muscles. TMs clear. Posterior oropharynx clear. Pain with ROM. Atraumatic. Cardiovascular: Regular rate and rhythm, no extra sounds. Pulmonary: Clear to auscultation bilaterally, normal work of breathing. Abdomen: Soft, nontender, nondistended, positive bowel sounds. Musculoskeletal: Atraumatic, no peripheral edema. Neurologic: Patient awake alert and oriented x 3, equal strength in the bilateral upper extremities. Skin: Warm, dry, no rash Medical Decision & Procedures ER Provider Diagnostic Interpretation: Radiology results as stated below per my review and radiologist interpretation: C-SPINE ROUTINE 4 OR 5 VIEWS CLINICAL HISTORY: 47 years-old Female presenting with cervical spasm, Right. TECHNIQUE: Lateral, swimmer's, open-mouth odontoid, frontal, bilateral oblique views of the cervical spine were obtained. COMPARISON: MR of the cervical spine from 12/09/2015. FINDINGS: Normal cervical lordosis. Vertebral bodies maintain normal height and alignment. Intervertebral disc heights preserved. No radiographic evidence of fracture or subluxation. No advanced degenerative change. Normal predental interval. No prevertebral soft tissue swelling. The C7 vertebral body is nearly fully visualized. Lateral masses of C1 articulate normally with C2. No scoliosis or significant uncovertebral hypertrophy. No osseous neural foraminal narrowing. IMPRESSION: Normal radiographic examination of the cervical spine. Electronically signed by: Cortez Li M.D. 09/18/2017 9:38 PM Dictated Date/Time: 09/18/2017 9:37 PM Medications Administered Medications (Trade) Dose Ordered Sig/Jt Route Start Time Stop Time Status Last Admin Dose Admin Cyclobenzaprine HCl (Flexeril Tab) 10 mg NOW STAT PO 09/18/17 20:50 09/18/17 20:52 DC 09/18/17 21:00 10 MG Hydromorphone HCl (Dilaudid Inj) 1 mg NOW STAT IM 09/18/17 20:50 09/18/17 20:52 DC 09/18/17 21:01 1 MG Prednisone (PredniSONE TAB) 40 mg STK-MED ONCE .ROUTE 09/18/17 20:58 09/18/17 20:59 DC 09/18/17 21:01 40 MG Prednisone (PredniSONE TAB) 10 mg STK-MED ONCE .ROUTE 09/18/17 20:58 09/18/17 20:59 DC 09/18/17 21:01 10 MG Ondansetron HCl (Zofran Odt) 4 mg STK-MED ONCE .ROUTE 09/18/17 21:35 09/18/17 21:36 DC 09/18/17 21:35 4 MG ED Course 2046: Past medical records reviewed. The patient was evaluated in room B9. A complete history and physical examination was performed. 2049: Ordered Dilaudid Inj 1 mg IM, Prednisone 50 mg PO, Flexeril Tab 10 mg PO. 2057: Ordered Prednisone 10 mg PO, Prednisone 10 mg PO. 2134: Ordered Zofran Odt 4 mg PO. 2220: Upon reevaluation, the patient appeared to have improvement of her symptoms. I discussed findings with her. She verbalized agreement of the treatment plan. The patient was discharged home. Medical Decision Differential Diagnoses: Differential diagnoses include cervical radiculopathy, degenerative disc disease , spinal stenosis, bony fracture, torticollis, meningitis. This patient was evaluated and appeared to be in no significant distress. Patient had significant discomfort on the right side of the neck with any palpation or movement. She was given 60 mg of oral prednisone, 10 mg of Flexeril and 1 mg of IM Dilaudid. X-rays of the cervical spine were obtained and are read as above. I suspect the patient is suffering from an acute torticollis. She was given a prescription for prednisone burst for 4 more days , Flexeril 5 mg 3 times a day as needed and asked to use Tylenol for pain. Patient was asked to use warm compresses and gentle stretching. She will follow -up with her PCP if symptoms do not improve for possible physical therapy evaluation as this has been going on for 3 weeks. Patient will return to the ER for worsening of symptoms or any medical concerns. Medication Reconcilliation Current Medication List: was personally reviewed by me Blood Pressure Screening Patient's blood pressure: Elevated blood pressure Blood pressure disposition: Elevated BP felt to be situational Impression Primary Impression: Torticollis, acute Scribe Attestation The scribe's documentation has been prepared under my direction and personally reviewed by me in its entirety. I confirm that the note above accurately reflects all work, treatment, procedures, and medical decision making performed by me. Departure Information Dispostion Home / Self-Care Prescriptions Prednisone (Prednisone) 20 Mg Tab 40 MG PO DAILY, #8 TAB Prov: Alva Solares M.D. 09/18/17 Cyclobenzaprine Hcl (FLEXERIL) 5 Mg Tab 5 MG PO TID Y for Muscle Spasms, #21 TAB Prov: Alva Solares M.D. 09/18/17 Referrals Cortez Melton M.D. (PCP) Forms HOME CARE DOCUMENTATION FORM, IMPORTANT VISIT INFORMATION, WORK / SCHOOL INSTRUCTIONS Patient Instructions My [facility] [address] Additional Instructions Diagnosis: Torticollis Flexeril 5 mg 3 times a day as needed for muscular spasm. Prednisone 40 mg daily for the next 4 days. Tylenol 650 mg every 6 hours as needed for pain. Warm compresses and gentle stretching. Follow-up with your your physician within the next several days for reevaluation. You may require a physical therapy referral. Return to the emergency department for worsening of symptoms or any medical concerns.
[2017-09-18] MEDS ORDERED: PRED20TA PO (22:10)
[2017-09-18] MEDS ORDERED: CYCL5TAB PO (22:10)
[2017-09-18 22:18] VITALS: BP 129/85; PULSE 86; O2SAT 97
[2017-09-18] MEDS ORDERED: FLEXERIL HOME PACK 10 MG VIAL PO ONE (22:30)
== END 2017-09-18 22:22 | disposition home or self-care (01) ==
LOC: C.EDB 20:20
DX: M43.6 Torticollis (principal); Z79.899 Other long term (current) drug therapy; Z88.8 Allergy status to other drugs, medicaments and biological substances; Z91.040 Latex allergy status; Z91.030 Bee allergy status

== ENCOUNTER → 2017-12-06 | Outpatient (CLI) | payer OTHER ==
[~2017-12-06] MED LIST changes: -BUPRTAB PO; +BUPRTAB51 PO; +PRED20TA PO
== END | disposition home or self-care (01) ==
LOC: C.LABPBG 10:19
PROVIDERS: ATTEND Internal Medicine
DX: E03.9 Hypothyroidism, unspecified (principal)